=== PATIENT | male | born 1945 | race Caucasian/White ===

== ENCOUNTER 2020-05-04 18:17 | Emergency (ER) | payer MEDICARE, BC ==
[2020-05-04 18:26] VITALS: BP 146/67; PULSE 79
--- NOTE | 2020-05-04 18:36 | EDM.PDOC ---
ED HPI GENERAL MEDICAL PROBLEM - General Chief Complaint: Lower Extremity Injury/Pain Stated Complaint: TWISTED ANKLE Time Seen by Provider: 05/04/20 18:25 Source of Information: Reports: Patient History Limitations: Reports: No Limitations - History of Present Illness INITIAL COMMENTS - FREE TEXT/NARRATIVE: Patient comes into the emergency department with complaint of a left ankle injury. Patient states that he was at home approximately 3-1/2 hours ago and was taking the trash out to the garbage and ended up slipping on some ice causing a fall. He states that his left ankle ended up twisting and rotating. He states that he did not hit his head or hurt any other portion of his body however he heard a cracking sensation when he did fall. He was able to get up and ambulate after the event. Over the course the last 2 hours he has noticed increased amount of swelling. He denies elevating his lower extremity but does state that he did apply ice for short period of time. He states that the ice did help a little bit with the swelling however it has continued to grow in. He wanted to have it further evaluated. Patient denies any range of motion or CMS concerns. Patient states he is able to ambulate on that lower extremity. He does state it is tender to touch on both medial and lateral aspects of that ankle. Patient denies any other major injuries to that ankle previously. Patient states Lower extremity does not hurt when he is not ambulating but does notice that it is a little bit more tender when he is walking. Patient denies any other symptoms or concerns today and states he has been relatively healthy. He also denies any chest pain, shortness of breath, dizziness, lightheadedness, blurred vision, nausea, vomiting or peripheral edema. Onset: Sudden Quality: Reports: Other Severity: Mild Improves with: Reports: Immobilization Worsens with: Reports: Movement Context: Reports: Activity Associated Symptoms: Reports: No Other Symptoms Left Ankle Pain Score (Numeric/FACES): 1 - Related Data Allergies Allergy/AdvReac Type Severity Reaction Status Date / Time No Known Allergies Allergy Verified 05/04/20 18:28 Home Meds: Home Meds Aspirin 162 mg PO DAILY 12/28/14 [History] Exenatide Microspheres [Bydureon Pen] 2 mg SQ WEEKLY 12/28/14 [History] Hydrochlorothiazide 12.5 mg PO DAILY 12/28/14 [History] Ramipril [Altace] 10 mg PO DAILY 12/28/14 [History] atorvaSTATin [Lipitor] 10 mg PO DAILY 12/28/14 [History] metFORMIN HCl [Metformin HCl] 1,000 mg PO BID 12/28/14 [History] Past Medical History Cardiovascular History: Reports: High Cholesterol, Hypertension Endocrine/Metabolic History: Reports: Diabetes, Type II - Past Surgical History Musculoskeletal Surgical History: Reports: Hip Replacement Other Musculoskeletal Surgeries/Procedures:: hip replacement done 7 years ago Review of Systems - Review of Systems Review Of Systems: Comprehensive ROS is negative, except as noted in HPI. Constitutional: Reports: No Symptoms Eyes: Reports: No Symptoms Ears: Reports: No Symptoms Nose: Reports: No Symptoms Mouth/Throat: Reports: No Symptoms Respiratory: Reports: No Symptoms Cardiovascular: Reports: No Symptoms GI/Abdominal: Reports: No Symptoms Genitourinary: Reports: No Symptoms Skin: Reports: No Symptoms Neurological: Reports: No Symptoms Psychiatric: Reports: No Symptoms ED EXAM, GENERAL - Physical Exam Exam: See Below Exam Limited By: No Limitations General Appearance: Alert, WD/WN, No Apparent Distress Head: Atraumatic, Normocephalic Neck: Normal Inspection, Supple, Non-Tender, Full Range of Motion Respiratory/Chest: No Respiratory Distress, No Accessory Muscle Use, Chest Non- Tender Cardiovascular: Normal Peripheral Pulses, Regular Rate, Rhythm, No Edema Peripheral Pulses: 4+: Dorsalis Pedis (L), Dorsalis Pedis (R) Extremities: Other (left ankle- moderate swelling medial and lateral aspect. CMS intact, ROM intact. Pop sensation noted with lateral movements. ) Neurological: Alert, Oriented, CN II-XII Intact, Normal Cognition Psychiatric: Normal Affect, Normal Mood Skin Exam: Warm, Dry, Intact, Normal Color Course - Vital Signs Last Recorded V/S: Last Vital Signs Temp 36.3 C 05/04/20 18:20 Pulse 79 05/04/20 18:20 Resp 16 05/04/20 18:20 BP 146/67 H 05/04/20 18:20 Pulse Ox 97 05/04/20 18:20 - Orders/Labs/Meds Orders: Active Orders 24 hr Category Date Time Status Splinting [RC] ASDIRECTED Care 05/04/20 18:49 Ordered Ankle 2V Lt [CR] Stat Exams 05/04/20 18:30 Taken Departure - Departure Time of Disposition: 19:00 Disposition: Home, Self-Care 01 Condition: Good Clinical Impression: Fracture of malleolus Qualifiers: Encounter type: initial encounter Fracture type: closed Laterality: left Qualified Code(s): S82.892A - Other fracture of left lower leg, initial encounter for closed fracture - Discharge Information *PRESCRIPTION DRUG MONITORING PROGRAM REVIEWED*: Not Applicable *COPY OF PRESCRIPTION DRUG MONITORING REPORT IN PATIENT LUIS: Not Applicable Instructions: Cast or Splint Care, Adult, [id number], Ankle Fracture Forms: ED Department Discharge Additional Instructions: 1. Rest 2. wear splint and remain non weightbearing until orthopedic speciality clears 3. Can use tylenol and ibuprofen as needed for pain and discomfort 4. Diet as tolerated 5. Use crutches or wheeled device to help with stability and prevent walking on extremity 6. Elevated the injured area above the level of the heart to decrease swelling and discomfort. 7. Use ice 3-4 times a day at 20-minute intervals to help with any swelling and discomfort 8. Follow-up with your primary care provider symptoms continue or to progress 9. Follow with any questions or concerns 10. Discharge information has been provided regarding your injury 11. Call [phone] to make an appointment on Wednesday am Sepsis Event Note (ED) - Evaluation Sepsis Screening Result: No Definite Risk - Focused Exam Vital Signs: Vital Signs Temp Pulse Resp BP Pulse Ox 05/04/20 18:20 36.3 C 79 16 146/67 H 97 - My Orders Last 24 Hours: My Active Orders 05/04/20 18:30 Ankle 2V Lt [CR] Stat 05/04/20 18:49 Splinting [RC] ASDIRECTED - Assessment/Plan Last 24 Hours: My Active Orders 05/04/20 18:30 Ankle 2V Lt [CR] Stat 05/04/20 18:49 Splinting [RC] ASDIRECTED Assessment:: 1. left ankle injury 2. left ankle fracture- malleolus Plan: 1. X-ray completed in the emergency department results reviewed with the patient 2. Ice Applied to the affected limb 3. Medication offered to the patient- pt denied needing any medication at this time. 4. Cam boot applied to help with support until evaluated by orthopedic and swelling is reduced. 4. Education regarding splinting, activity, [id number] medications, and follow-up care provided. 5. All questions and concerns addressed with the patient prior to discharge
--- NOTE | 2020-05-04 18:56 | CR ---
[id number] RAD/RAD Ankle Left 2V EXAM: 2 VIEWS LEFT ANKLE INDICATION: FELL ANKLE SWELLING. COMPARISON: None. DISCUSSION: Acute multi fragmentary displaced fracture of the distal left fibula. Additionally there appears to be a minimally displaced avulsion type fracture off the distal left medial malleolus. There is associated soft tissue edema as well as a left ankle joint effusion. IMPRESSION: 1. As above Randolph Nelson DO 05/04/20 1855 Thank you for allowing us to participate in the care of your patient.
== END 2020-05-04 19:04 | disposition home or self-care (01) ==
LOC: VM.ED 18:17
DX: S82.892A Other fracture of left lower leg, initial encounter for closed fracture (principal); E78.00 Pure hypercholesterolemia, unspecified; I10 Essential (primary) hypertension; E11.9 Type 2 diabetes mellitus without complications; Z79.84 Long term (current) use of oral hypoglycemic drugs; Z79.899 Other long term (current) drug therapy; Z79.82 Long term (current) use of aspirin; W00.0XXA Fall on same level due to ice and snow, initial encounter
CPT/HCPCS: 73600-LT; 99283; 99283-25